=== PATIENT | female | born 1965 | race Caucasian/White ===

== ENCOUNTER → 2023-09-20 08:40 | Outpatient (OUT) | payer OTHER, SELFPAY ==
--- NOTE | 2023-09-20 07:21 | US_ITS ---
[address] [address] Patient Name: PETERSON MILTON MRN: [id number] date: 1965 Sex: F Assigned Patient Location: US Current Patient Location: [facility] Accession/Order Number: [id number] Exam Date: 09/20/2023 07:22 Report Date: 09/20/2023 08:41 At the request of: MODESTA JOE Procedure: US biopsy FNA add lesion EXAMINATION: US biopsy thyroid, US biopsy FNA add lesion HISTORY: Thyroid Nodule COMPARISON: Ultrasound thyroid 08/11/2023 TECHNIQUE: After obtaining informed consent, ultrasound-guided fine needle aspiration was performed in the usual sterile manner. FINDINGS: IMAGING: Ultrasound. BIOPSY NEEDLE: 25-gauge; 3 separate passes within both nodules LOCATION: Right lobe superior nodule 2.0 x 1.5 x 1.0 cm. Right lobe mid body nodule 1.6 x 1.2 x 0.6 cm SPECIMEN TYPE: Cellular tissue. LOCAL ANESTHETIC: Buffered Xylocaine. COMPLICATIONS: None. LABORATORY: Prepared slide smears and washings for cell block evaluation. OTHER: Negative. PATHOLOGY: Pending. An addendum will be added when results are available. US/US biopsy FNA add lesion IMPRESSION: 1. Uneventful ultrasound guided fine needle aspiration (FNA). 2. Pathology results are pending. Electronically authenticated by: MARIA DEL CARMEN LAMA Date: 09/20/2023 08:41
--- NOTE | 2023-09-20 07:21 | US_ITS ---
[address] [address] Patient Name: PETERSON MILTON MRN: [id number] date: 1965 Sex: F Assigned Patient Location: Current Patient Location: [facility] Accession/Order Number: [id number] Exam Date: 09/20/2023 07:22 Report Date: 09/20/2023 08:41 At the request of: MODESTA JOE Procedure: US biopsy thyroid EXAMINATION: US biopsy thyroid, US biopsy FNA add lesion HISTORY: Thyroid Nodule COMPARISON: Ultrasound thyroid 08/11/2023 TECHNIQUE: After obtaining informed consent, ultrasound-guided fine needle aspiration was performed in the usual sterile manner. FINDINGS: IMAGING: Ultrasound. BIOPSY NEEDLE: 25-gauge; 3 separate passes within both nodules LOCATION: Right lobe superior nodule 2.0 x 1.5 x 1.0 cm. Right lobe mid body nodule 1.6 x 1.2 x 0.6 cm SPECIMEN TYPE: Cellular tissue. LOCAL ANESTHETIC: Buffered Xylocaine. COMPLICATIONS: None. LABORATORY: Prepared slide smears and washings for cell block evaluation. OTHER: Negative. PATHOLOGY: Pending. An addendum will be added when results are available. US/US biopsy thyroid IMPRESSION: 1. Uneventful ultrasound guided fine needle aspiration (FNA). 2. Pathology results are pending. Electronically authenticated by: MARIA DEL CARMEN LAMA Date: 09/20/2023 08:41
[2023-09-20 07:30] VITALS: BP 130/62; PULSE 74; O2SAT 96
--- NOTE | 2023-09-20 10:46 | SUR.PREOP ---
09/14/22 Pt instructed on procedure, date, time, and prep. Made aware to continue to hold ASA until after biopsy.
== END ==
LOC: US 07:15 → RAD 08:40
PROVIDERS: Radiology Diagnostic Radiology; PCP Family Medicine; Visit Provider Otolaryngology
DX: E04.2 Nontoxic multinodular goiter (principal)
CPT/HCPCS: 10005; 10006; 88173

== ENCOUNTER 2023-09-21 08:16 | Day surgery (SDC) | payer OTHER, SELFPAY ==
--- OUTSIDE RECORDS SUMMARY | 2023-09-21 08:20 | XMS_ITS | CCD ---
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 Met? Yes Last Modified By: Heike Mcneil RN 01/18/23 13:19:48 Post-Care Text: The patient participates in decisions affecting his or her perioperative plan of care The patient's right to privacy is maintained Surgery Checklist FT Entry 1 Patient Birthday, ID Band Procedure History and Physical, Identification: Check, Patient Verification: Surgical Consent, With Participation Patient NPO after Midnight: Yes Results Reviewed Yellow/clear Comments: Personal Items Metal in back Complaints of Pain: No Comment: Pain Comment: Denies Operative Site n/a Marking: Availability Equipment Verified: Does Patient Smoke No Patient states Yes Comment - Adult Genie postop adult Supervision supervision available Case Cancelled in No Holding Area see comments below for reason Last Modified By: Heike Mcneil RN 01/18/23 13:21:06 General Comments: Pt completed prep at 1010 and remained NPO since/ANNA GUTIÉRREZ Finalized By: Heike Mcneil RN Document Signatures Signed By: Heike Mcneil RN 01/18/23 13:31 Normal [facility] Monitor Recordon 01-18-2023 Monitor Record [id number] CD:127 Normal [facility] Monitor Record [id number] CD:127 Normal [facility] Patient Education - Texton 0 01-18-2023 Patient Education - Text Colonoscopy Care After Surgery Please read the instructions outlined below and refer to this sheet in the next few weeks. These discharge instructions provide you with general information on caring for yourself after you leave the hospital. Your doctor may also give you specific instructions. While your treatment has been planned according to the most current medical practices available, unavoidable complications occasionally occur. If you have any problems or questions after discharge, please call your doctor. ACTIVITY You may resume your regular activity, but move at a slower pace for the next 24 hours. Take frequent rest periods for the next 24 hours. Walking will help get rid of the air and reduce the bloated feeling in your abdomen (belly). No driving for 24 hours (because of the anesthesia (medicine) used during the test). You may shower. Do not sign any important legal documents or operate any machinery for 24 hours (because of the anesthesia used during the test). NUTRITION Drink plenty of fluids. You may resume your normal diet as instructed by your doctor. Begin with a light meal and progress to your normal diet. Heavy or fried foods are harder to digest and may make you feel nauseated (sick to your stomach). Avoid alcoholic beverages for 24 hours or as instructed. MEDICATIONS You may resume your normal medications unless your doctor tells you otherwise. WHAT YOU CAN EXPECT TODAY Some feelings of bloating in the abdomen. Passage of more gas than usual. Spotting of blood in your stool or on the toilet paper. FOLLOW-UP Your doctor will discuss the results of your test with you. SEEK IMMEDIATE MEDICAL ATTENTION IF: There is more than a spotting of blood in your stool. There is abdominal distention (your abdomen is swollen). There is vomiting. You have a temperature over 101.5 F. There is abdominal pain or discomfort that is severe or gets worse throughout the day. Gastroenterology Hemorrhoids Hemorrhoids are swollen veins that may develop: ? In the butt (rectum). These are called internal hemorrhoids. ? Around the opening of the butt (anus). These are called external hemorrhoids. Hemorrhoids can cause pain, itching, or bleeding. Most of the time, they do not cause serious problems. They usually get better with diet changes, lifestyle changes, and other home treatments. What are the causes? This condition may be caused by: ? Having trouble pooping (constipation). ? Pushing hard (straining) to poop. ? Watery poop (diarrhea). ? . ? Being very overweight (obese). ? Sitting for long periods of time. ? Heavy lifting or other activity that causes you to strain. ? Anal sex. ? Riding a bike for a long period of time. What are the signs or symptoms? Symptoms of this condition include: ? Pain. ? Itching or soreness in the butt. ? Bleeding from the butt. ? Leaking poop. ? Swelling in the area. ? One or more lumps around the opening of your butt. How is this diagnosed? A doctor can often diagnose this condition by looking at the affected area. The doctor may also: ? Do an exam that involves feeling the area with a gloved hand (digital rectal exam). ? Examine the area inside your butt using a small tube (anoscope). ? Order blood tests. This may be done if you have lost a lot of blood. ? Have you get a test that involves looking inside the colon using a flexible tube with a camera on the end (sigmoidoscopy or colonoscopy). How is this treated? This condition can usually be treated at home. Your doctor may tell you to change what you eat, make lifestyle changes, or try home treatments. If these do not help, procedures can be done to remove the hemorrhoids or make them smaller. These may involve: ? Placing rubber bands at the base of the hemorrhoids to cut off their blood supply. ? Injecting medicine into the hemorrhoids to shrink them. ? Shining a type of light energy onto the hemorrhoids to cause them to fall off. ? Doing surgery to remove the hemorrhoids or cut off their blood supply. Follow these instructions at home: Eating and drinking ? Eat foods that have a lot of fiber in them. These include whole grains, beans, nuts, fruits, and vegetables. ? Ask your doctor about taking products that have added fiber (fibersupplements). ? Reduce the amount of fat in your diet. You can do this by: ? Eating low-fat dairy products. ? Eating less red meat. ? Avoiding processed foods. ? Drink enough fluid to keep your pee (urine) pale yellow. Managing pain and swelling ? Take a warm-water bath (sitz bath) for 20 minutes to ease pain. Do this 3?4 times a day. You may do this in a bathtub or using a portable sitz bath that fits over the toilet. ? If told, put ice on the painful area. It may be helpful to use ice between your warm baths. ? Put ice in a plas (more content not included)... Normal [facility] Family Medicine Office/Clini c Noteon 12-27-2022 Family Medicine Office/Clinic Note Chief Complaint sore throat HPI Staff Patient here today for sore throat. C/O: Duration: 5 days ago Body aches: yes mild Chills: no Fatigue: yes mild Cough: yes Sore throat: yes Fever: no Headache: yes Nasal congestion: yes Loss of taste: no Loss of smell: no Eye itching/watering: no Sneezing: no SOB: no Known Exposure: no History of Covid 19 previouslyno Vaccinated against covid 19:yes Health Maintenance: Colonoscopy: 05/18/2018, pt scheduled for repeat 01/18/2023 Mammo: 07/04/2022 Pap: 05/25/2022 Last Labs: 02/07/2022 History of Present Illness Erika Rueda is a 57-year-old female who presents today for sore throat that started 5 days ago. She has mild body aches, mild fatigue, cough, sore throat, headache, and nasal congestion. She has no known exposure. She has been vaccinated against COVID-19. She has not had COVID-19 in the past. The sore throat, headache, and cough are affecting her the most. She had a cough that lasted 15 minutes. She finds her symptoms to be moderate. Denies any aches or pains in her knees, elbows, or shoulders. She is experiencing neck pain which she associates with sleeping in a bad position. Review of Systems PHQ Score Initial Depression Screen Score: 0 Negative except as stated in HPI. Physical Exam Vitals & Measurements T: 36.8 ?C(Oral) HR: 81(Peripheral) BP: 116/60 SpO2: 94% HT: 66 in HT: 168 cm WT: 123.2 kg WT: 271.04 lb BMI: 43.65 General: Alert and oriented x4. Not in acute cardiopulmonary distress. Well hydrated, well developed, well nourished. Mental Status: Awake and Oriented to person, place, time, and situation. Normal affect. Normal mood. Normal interaction. Good eye contact. Answers all questions and maintains eye contact. Head: Normocephalic, atraumatic. Eyes: Conjunctiva pink. Sclera white. Pupils are equal, round and reactive to light. Extraocular muscles intact. Ear, Nose and Throat: There are signs of postnasal drip. Tonsils have been removed and are not present. There is no effusion and there is no erythema in either ear. There is no drainage, no pus, or bleeding in either of the ears. There is no tenderness on palpating the tragus of both ears or pulling on the penile of both ears. There is no tenderness on palpating the right ethmoidal sinus, but no tenderness on palpating the left ethmoidal sinus. Tympanic membranes clear bilaterally. Trachea midline. Neck: Supple, Full range of motion. Respiratory: No chest tenderness, Equal bilateral aeration. No wheezing, rales or rhonchi. Cardiovascular: S1, S2 heard. regular rate and rhythm. No murmurs, rubs, or gallops. Gastrointestinal: Abdomen non-distended. Normal bowel sounds. Soft, non-tender to palpation. No pulsatile mass. No hepatosplenomegaly. Genitourinary: No suprapubic or costovertebral angle tenderness. Neurologic: Cranial nerves II-XII grossly intact. No focal neurological deficits. Deep tendon reflexes +2 bilaterally. Moves all extremities spontaneously. Sensation intact bilaterally. Skin: Warm, not moist, no dry scaling. No rashes or lesions. No petechiae or purpura. No edema. Musculoskeletal: No cyanosis or clubbing. No gross deformities. Normal range of motion. Lymphatics: There are no tender or swollen lymph nodes in the ears. Assessment/Plan General: Patient's vitals are within normal limits. 1. Acute rhinosinusitis (J01.90: Acute sinusitis, unspecified) We will give patient Bromfed. Educated her to have at least 8 cups of fluids, preferably up to 12 cups of fluids a day. Also ordered benzonatate as needed for her cough. Advised her to continue using her Flonase but do 1 spray on each nostril two times a day. I educated her on proper use. 2. Non-smoker (Z78.9: Other specified health status) Patient is advised to continue to refrain from smoking. 3. BMI 40.0-44.9, adult (Z68.41: Body mass index [BMI] 40.0-44.9, adult) The standard range for ages 18 and older is >=18.5 and <25 kg/m2. Your BMI today was above this range. There are medical benefits to weight loss. Increase whole foods, decrease processed foods, exercise at least 150 minutes per week. We can offer counselling, referral, and/or medical support in addressing this problem. Your BMI and weight management will be followed at subsequent visits. 4. Morbid obesity (E66.01: Morbid (severe) obesity due to excess calories) Patient is advised to follow healthy fitness, nutrition, and lifestyle practices. Documentation services were performed after patient or guardian consented to allow [employer] [facility] to record this visit. 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 [facility] Comment on above: Result Comment: Elec tronically Signed By: Hunter Thomas MD\.br\Date and Time Signed: 12/27/22 08:36 EDT\.br\Electronically Co-Signed By: Costa Valdes\.br\Date and Time Co-Signed: 12/22/22 15:54 EDT Consent for Procedure/Surger yon 11-01-2022 Consent for Procedure/Surgery [id number] D:127 [facility] Ambulatory Visit Summaryon 0 10-31-2022 Ambulatory Visit Summary ERIKA RUEDA :1965 Visit Date:10/31/2022 Ambulatory Visit Instructions Your Diagnosis Screen for colon cancer Family history of colon cancer Family history of colonic polyps Your Care Team Attending Physician - Lilly Oconnell CNP Primary Care Physician - Miranda ARITA MD This Is Your Medications List polyethylene glycol 3350 with electrolytes (Plenvu oral powder for reconstitution) Contact prescribing physician if questions or concerns Misc Prescription (Blood glucometer) Misc Prescription (CPAP tubing and masks) Misc Prescription (Freestyle Lite test strips) Misc Prescription (Lancets) aspirin (Aspir 81) atorvastatin (atorvastatin 40 mg Tab) buPROPion (buPROPion 200 mg oral tablet, extended release) cetirizine (cetirizine 10 mg Tab) dextromethorphan-promet hazine (Promethazine DM oral syrup) fluticasone nasal (Flonase 0.05 mg/inh nasal spray) glimepiride (glimepiride 2 mg Tab) hydrochlorothiazide (hydrochlorothiazide 25 mg Tab) hydrochlorothiazide (hydrochlorothiazide 25 mg oral tablet) levonorgestrel (Mirena 52 mg intrauteral device) losartan (losartan 100 mg Tab) metformin (metformin 500 mg ER Tab) semaglutide (Rybelsus 14 mg oral tablet) Procedures Performed Colonoscopy (05/18/2018), I&D right facial abscess (08/27/2014), cholecystectomy, left foot surgery, lumbar fusion - 2004, Tonsillectomy. Discharge Vitals Temperature (Temporal Artery) 36.5 ?C Heart Rate (Peripheral) 75 Blood Pressure 114/77 Height 168 cm Height 66 in Weight 124.6 kg Weight 274.12 lb BMI 44.15 What to do next Scheduled Follow-Up Appointments Monday 2:30 PM EDT Where: [facility] You Need to Schedule the Following Appointments Follow Up with Lilly Oconnell CNP When: Within 1 to 2 weeks Comments: Following colonoscopy. Where: Medications What How Much When Why Instructions New polyethylene glycol 3350 with electrolytes (Plenvu oral powder for reconstitution) See instructions Prior to colonoscopy. Pickup at [facility] Unchanged aspirin (Aspir 81) 81 Milligram By Mouth Every day Contact prescribing physician if questions or concerns Unchanged atorvastatin (atorvastatin 40 mg Tab) 1 Tablets By Mouth Every day Contact prescribing physician if questions or concerns Unchanged buPROPion (buPROPion 200 mg oral tablet, extended release) 1 Tablets By Mouth 2 times a day Contact prescribing physician if questions or concerns Unchanged cetirizine (cetirizine 10 mg Tab) 10 Milligram By Mouth Every day Contact prescribing physician if questions or concerns Unchanged dextromethorphan-promet hazine (Promethazine DM oral syrup) 5 Milliliter By Mouth Every 6 hours as needed for for cough Contact prescribing physician if questions or concerns Unchanged fluticasone nasal (Flonase 0.05 mg/ inh nasal spray) 2 Sprays Nasal Inhalation Every day each nostril Contact prescribing physician if questions or concerns Unchanged glimepiride (glimepiride 2 mg Tab) 1 Tablets By Mouth Every day Contact prescribing physician if questions or concerns Unchanged hydrochlorothiazide (hydrochlorothiazide 25 mg oral tablet) 1 Tablets By Mouth Every day Contact prescribing physician if questions or concerns Unchanged hydrochlorothiazide (hydrochlorothiazide 25 mg Tab) 1 Tablets By Mouth Every day Contact prescribing physician if questions or concerns Unchanged levonorgestrel (Mirena 52 mg intrauteral device) 1 Each Intrauteral Once Duration: 1 Doses Contact prescribing physician if questions or concerns Unchanged losartan (losartan 100 mg Tab) 1 Tablets By Mouth Every day Contact prescribing physician if questions or concerns Unchanged metformin (metformin 500 mg ER Tab) 4 Tablets By Mouth Once daily with supper Contact prescribing physician if questions or concerns Unchanged Misc Prescription (Blood glucometer) See instructions Check Blood pressure daily 11.9 Contact prescribing physician if questions or concerns Unchanged Misc Prescription (CPAP tubing and masks) See instructions Sleep apnea For CPAP machine Contact prescribing physician if questions or concerns Unchanged Misc Prescription (Freestyle Lite test strips) See instructions test blood qd and bid E11.9 Contact prescribing physician if questions or concerns Unchanged Misc Prescription (Lancets) See instructions Test blood sugar qd, Dx: E11.9 Contact prescribing physician if questions or concerns Unchanged semaglutide (Rybelsus 14 mg oral tablet) 1 Tablets By Mouth Every day Type 2 diabetes mellitus Contact prescribing physician if questions or concerns Pharmacy Information [facility]: [address] [facility] [address] [place], [place] [id number] [phone] Allergies Latex (unknown) amoxicillin (unknow) lisinopril (Unknown) Problems Ongoing - Any problem that you are currently receiving treatment for. Atypical squamous cell of undetermined (more content not included)... Normal [facility] Gastroenterology Office/Clin ic Noteon 10-31-2022 Gastroenterology Office/Clinic Note Chief Complaint Colonoscopy recheck. HPI Staff This is a 57 year old female who presents today to schedule a colonoscopy. Patients last colonoscopy was 05/18/2018. History of Present Illness Patient is a 57-year-old female who presents for referral from her PCP Dr. Thomas for colonoscopy. PMH of HTN, HLD, DM, type 2- managed by patient's PCP. Patient had previous colonoscopy 04/[address] Bermudez that revealed hemorrhoids, diverticulosis, otherwise normal. Patient with family history of colon cancer. Family history of colon cancer: Patient's maternal grandmother. Family history of colon polyps: Patient's mother. Personal history of colon cancer: Denies. Personal history of colon polyps: Denies. Takes aspirin daily. During today's visit, patient reports she is doing well. Denies change in bowel habits, black/bloody stools, nausea/vomiting, and denies unintentional weight loss. Denies having any GI complaints. Review of Systems PHQ Score Initial Depression Screen Score: 0 ROS - Provider Constitutional: no fever, no chills. Skin: no Jaundice. ENMT: Denies dysphagia and heartburn. Respiratory: no shortness of breath. Cardiovascular: no chest pain. Gastrointestinal: no nausea, no vomiting, no diarrhea, no GI bleeding. Physical Exam Vitals & Measurements T: 36.5 ?C(Temporal Artery) HR: 75(Peripheral) BP: 114/77 HT: 66 in HT: 168 cm WT: 124.6 kg WT: 274.12 lb BMI: 44.15 General: Well developed, well nourished, in no acute distress Head: Normocephalic/atraumati c Lungs: Normal respiratory effort and clear to auscultation Cardio: Regular rate and rhythm, normal S1 and S2, no murmur, no rub Abdomen: Soft, non-distended, non-tender. Normoactive bowel sounds present in all 4 abdominal quadrants, bilaterally. Mental Status: Alert and oriented x3. Normal mood and affect Assessment/Plan 1. Screen for colon cancer (Z12.11: Encounter for screening for malignant neoplasm of colon) Previous colonoscopy 04/2018 revealed hemorrhoids, diverticulosis, otherwise normal. Patient with family history of colon cancer and colon polyps- see # 2 and 3. Ordered Colonoscopy. Takes aspirin daily. Ordered: Colonoscopy (Hospital Procedure) 2. Family history of colon cancer (Z80.0: Family history of malignant neoplasm of digestive organs) Family history of colon cancer: Patient's maternal grandmother. Family history of colon polyps: Patient's mother. Previous colonoscopy 04/2018 revealed hemorrhoids, diverticulosis, otherwise normal. Ordered Colonoscopy. Takes aspirin daily. Ordered: Colonoscopy (Hospital Procedure) 3. Family history of colonic polyps (Z83.71: Family history of colonic polyps) Family history of colon cancer: Patient's maternal grandmother. Family history of colon polyps: Patient's mother. Previous colonoscopy 04/2018 revealed hemorrhoids, diverticulosis, otherwise normal. Ordered Colonoscopy. Takes aspirin daily. Ordered: Colonoscopy (Hospital Procedure) Orders: polyethylene glycol 3350 with electrolytes, See Instructions, 1 EA, Refill(s) 0, [facility]., [facility], 168, cm, 10/31/22 15:48:00 EDT, Height/Length Dosing, 124.6, kg, 10/31/22 15:48:00 EDT, Weight Dosing Follow-up With When Contact Information Lilly Oconnell CNP Within 1 to 2 weeks Additional Instructions: Following colonoscopy. 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 Dietary counseling Eczema Encounter for colorectal cancer screening Exercise counseling Family history of colon cancer Family history of colonic polyps Hemorrhoids High risk medications (not anticoagulants) long-term use History of MRSA infection Hypertension Mixed hyperlipidemia Moderate major depression Morbid obesity due to excess calories Non-smoker Obstructive sleep apnea Peroneal tendonitis of left lower leg Preoperative clearance Screen for colon cancer Screening mammogram, encounter for Seasonal allergies Type 2 diabetes mellitus Viral conjunctivitis, right eye Historical Acute contact dermatitis Cellulitis of right lower limb Chronic GERD Depression MRSA Scabies Procedure/Surgical History Colonoscopy (05/18/2018), I&D right facial abscess (08/27/2014), cholecystectomy, left foot surgery, lumbar fusion - 2004, Tonsillectomy. Medications Aspir 81, 81 mg, Oral, Daily atorvastatin 40 mg Tab, 40 mg= 1 tab(s), Oral, Daily Blood glucometer, See Instructions buPROPion 200 mg oral tablet, extended release, 200 mg= 1 tab(s), Oral, BID cetirizine 10 mg Tab, 10 mg, Oral, Daily, 3 refills CPAP tubing and masks, See Instructions Flonase 0.05 mg/inh nasal spray, 2 spray(s), Nasal, Daily, 3 refills Freestyle Lite test strips, See Instructions, 3 refills glimepiride 2 mg Tab, 2 mg= 1 tab(s), Oral, Daily, 3 refills hydrochlorothiazide 25 mg oral tablet, 25 mg= (more content not included)... Normal [facility] Comment on above: Result Comment: Elec tronically Signed By: Lilly Oconnell CNP\.br\Date and Time Signed: 10/31/22 16:07 EDT Patient Educationon 11-01-19 Patient Education Radiology Colonoscopy, Adult A colonoscopy is an exam to look at the entire large intestine. During the exam, a lubricated, flexible tube that has a camera on the end of it is inserted into the anus and then passed into the rectum, colon, and other parts of the large intestine. You may have a colonoscopy as a part of normal colorectal screening or if you have certain symptoms, such as: ? Lack of red blood cells (anemia). ? Diarrhea that does not go away. ? Abdominal pain. ? Blood in your stool (feces). A colonoscopy can help screen for and diagnose medical problems, including: ? Tumors. ? Polyps. ? Inflammation. ? Areas of bleeding. Tell a health care provider about: ? Any allergies you have. ? All medicines you are taking, including vitamins, herbs, eye drops, creams, and vgwv-diq-fgyloky medicines. ? Any problems you or family members have had with anesthetic medicines. ? Any blood disorders you have. ? Any surgeries you have had. ? Any medical conditions you have. ? Any problems you have had passing stool. What are the risks? Generally, this is a safe procedure. However, problems may occur, including: ? Bleeding. ? A tear in the intestine. ? A reaction to medicines given during the exam. ? Infection (rare). What happens before the procedure? Eating and drinking restrictions Follow instructions from your health care provider about eating and drinking, which may include: ? A few days before the procedure ? follow a low-fiber diet. Avoid nuts, seeds, dried fruit, raw fruits, and vegetables. ? 1?3 days before the procedure ? follow a clear liquid diet. Drink only clear liquids, such as clear broth or bouillon, black coffee or tea, clear juice, clear soft drinks or sports drinks, gelatin dessert, and popsicles. Avoid any liquids that contain red or purple dye. ? On the day of the procedure ? do not eat or drink anything starting 2 hours before the procedure, or within the time period that your health care provider recommends. Up to 2 hours before the procedure, you may continue to drink clear liquids, such as water or clear fruit juice. Bowel prep If you were prescribed an oral bowel prep to clean out your colon: ? Take it as told by your health care provider. Starting the day before your procedure, you will need to drink a large amount of medicated liquid. The liquid will cause you to have multiple loose stools until your stool is almost clear or light green. ? If your skin or anus gets irritated from diarrhea, you may use these to relieve the irritation: ? Medicated wipes, such as adult wet wipes with aloe and vitamin E. ? A skin-soothing product like petroleum jelly. ? If you vomit while drinking the bowel prep, take a break for up to 60 minutes and then begin the bowel prep again. If vomiting continues and you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
--- NOTE | 2023-09-21 08:21 | US_ITS ---
[address] [address] Patient Name: PETERSON MILTON MRN: [id number] date: 1965 Sex: F Assigned Patient Location: US Current Patient Location: US Accession/Order Number: [id number] Exam Date: 09/21/2023 08:35 Report Date: 09/21/2023 09:42 At the request of: MODESTA JOE Procedure: US biopsy FNA add lesion EXAMINATION: US biopsy thyroid HISTORY: Thyroid Nodule ; left lobe thyroid nodules COMPARISON: Ultrasound thyroid 08/11/2023 TECHNIQUE: After obtaining informed consent, ultrasound-guided fine needle aspiration was performed in the usual sterile manner. FINDINGS: IMAGING: Ultrasound. BIOPSY NEEDLE: 25-gauge; 3 separate passes within the superior pole nodule and within the inferior pole nodule. LOCATION: Superior pole 1.9 cm heterogeneous nodule; inferior pole 2.1 cm heterogeneous nodule. SPECIMEN TYPE: Cellular tissue. LOCAL ANESTHETIC: Buffered Xylocaine. COMPLICATIONS: None. LABORATORY: Prepared slide smears and washings for cell block evaluation. OTHER: Negative. PATHOLOGY: Pending. An addendum will be added when results are available. US/US biopsy FNA add lesion IMPRESSION: 1. Uneventful ultrasound guided fine needle aspiration (FNA). 2. Pathology results are pending. Electronically authenticated by: MARIA DEL CARMEN LAMA Date: 09/21/2023 09:42
--- NOTE | 2023-09-21 08:21 | US_ITS ---
[address] [address] Patient Name: PETERSON MILTON MRN: [id number] date: 1965 Sex: F Assigned Patient Location: US Current Patient Location: US Accession/Order Number: [id number] Exam Date: 09/21/2023 08:35 Report Date: 09/21/2023 09:42 At the request of: MODESTA JOE Procedure: US biopsy thyroid EXAMINATION: US biopsy thyroid HISTORY: Thyroid Nodule ; left lobe thyroid nodules COMPARISON: Ultrasound thyroid 08/11/2023 TECHNIQUE: After obtaining informed consent, ultrasound-guided fine needle aspiration was performed in the usual sterile manner. FINDINGS: IMAGING: Ultrasound. BIOPSY NEEDLE: 25-gauge; 3 separate passes within the superior pole nodule and within the inferior pole nodule. LOCATION: Superior pole 1.9 cm heterogeneous nodule; inferior pole 2.1 cm heterogeneous nodule. SPECIMEN TYPE: Cellular tissue. LOCAL ANESTHETIC: Buffered Xylocaine. COMPLICATIONS: None. LABORATORY: Prepared slide smears and washings for cell block evaluation. OTHER: Negative. PATHOLOGY: Pending. An addendum will be added when results are available. US/US biopsy thyroid IMPRESSION: 1. Uneventful ultrasound guided fine needle aspiration (FNA). 2. Pathology results are pending. Electronically authenticated by: MARIA DEL CARMEN LAMA Date: 09/21/2023 09:42
[2023-09-21 08:30] VITALS: BP 144/116; PULSE 87; O2SAT 95
[2023-09-21] MEDS: LIDOCAINE HCL 10 ML, SODIUM BICARBONATE 1 MEQ INJ (09:00)
== END 2023-09-21 09:20 | disposition home or self-care (01) ==
LOC: US 08:17
PROVIDERS: Radiology Diagnostic Radiology; PCP Family Medicine; Visit Provider Otolaryngology
DX: E04.2 Nontoxic multinodular goiter (principal)
CPT/HCPCS: 10005; 10006; 88173